=== PATIENT | male | born 1955 | race Asian ===

== ENCOUNTER 2019-08-30 12:32 | Inpatient (IN) | payer MEDICAID ==
[~2019-08-30] VITALS: Ht 162.6 cm; Wt 62.0 kg
[2019-08-30 12:58] LABS: Basophils # (auto) 0.1 uL; Lymphocytes # (auto) 2.6 uL; White Blood Cell 9.3 10^3/uL (4.4-10.8)
[2019-08-30 13:00] LABS: Basophils % (auto) 0.8 % (0.0-2.0); Eosinophils % (auto) 10.4 % (0.0-7.0); Hematocrit 36.6 % (41.0-53.0); Hemoglobin 11.9 g/dL (13.5-17.5); Lymphocytes % (auto) 28.1 % (10.0-50.0); Mean Corpuscular Hemoglobin 25.7 pg (28.0-32.0); Mean Corpuscular Hgb Conc. 32.5 g/dL (32.0-36.0); Monocytes % (auto) 11.3 % (0.0-12.0); Neutrophils # (auto) 4.6 uL; Neutrophils % (auto) 49.4 % (37.0-80.0); Nucleated Red Blood Cells % 0.1 %; Platelet Count (auto) 248 10^3/uL (140-450); Red Blood Cells 4.63 10^6/uL (4.5-5.90)
[2019-08-30 13:20] LABS: Albumin 3.3 g/dL (3.4-5.0); Anion Gap 5 (5-15); Blood Urea Nitrogen 16 mg/dL (7-18); Calcium 8.7 mg/dL (8.5-10.1); Carbon Dioxide 26 mmol/L (21-32); Chloride 109 mmol/L (98-107); Glucose 139 mg/dL (74-106); Potassium 3.5 mmol/L (3.5-5.1); Sodium 140 mmol/L (136-145)
[2019-08-30 13:26] LABS: Alanine Aminotransferase 42 U/L (16-61); Alkaline Phosphatase 92 U/L (45-117); Aspartate Aminotransferase 22 U/L (15-37); BUN/Creatinine Ratio 18.8; Bilirubin, Total 0.3 mg/dL (0.2-1.0); GFR African American 117 mL/min; GFR Non-African American 97 mL/min
[2019-08-30] MEDS ORDERED: cloNIDine HCL 0.1 MG TAB PO PRN (21:00)
[2019-08-30] MEDS ORDERED: ACETAMINOPHEN 325 MG TAB PO PRN (21:00)
[2019-08-30] MEDS ORDERED: TEMAZEPAM 15 MG CAP PO PRN (21:00)
[2019-08-30] MEDS ORDERED: ONDANSETRON HCL 4 MG/2 ML VIAL IV PRN (21:00)
[2019-08-30] MEDS ORDERED: MORPHINE SULF INJ 2 MG/ML SYRINGE 1ML IV PRN (21:30)
[2019-08-30] MEDS ORDERED: NITROGLYCERIN 0.4 MG SL TAB SL PRN (21:30)
[2019-08-30] MEDS: ATORVASTATIN 20 MG TAB PO SCH (22:19)
[2019-08-30] MEDS: FAMOTIDINE 20 MG TAB PO SCH (22:19)
[2019-08-30 22:30] VITALS: BP 150/86
--- NOTE | 2019-08-30 23:30 | NUR ---
Received the pt from ER at 2330. Reviewed POC. Oriented the patient to room 217B. All questions and concerned were addressed. Family at bedside.
--- NOTE | 2019-08-31 02:13 | NUR ---
Patient resting with eyes closed. Call light within reach.
--- NOTE | 2019-08-31 04:03 | NUR ---
Patient resting with eyes closed. Call light is within reach.
--- NOTE | 2019-08-31 04:31 | NUR ---
MRSA swab sent to lab.
[2019-08-31 05:58] VITALS: BP 144/86
--- NOTE | 2019-08-31 06:50 | NUR ---
Report given to Dustin JAVED. POC reviewed.
[2019-08-31 07:42] LABS: BUN/Creatinine Ratio 16.5; Calcium 8.8 mg/dL (8.5-10.1); Potassium 4.1 mmol/L (3.5-5.1)
[2019-08-31 09:00] VITALS: BP 137/87
[2019-08-31] MEDS: FAMOTIDINE 20 MG TAB PO SCH ×2 (10:10→21:41)
[2019-08-31] MEDS: ASPirin 81 mg TAB PO SCH (10:10)
[2019-08-31 13:00] VITALS: BP 117/70
[2019-08-31 17:00] VITALS: BP 132/84
--- NOTE | 2019-08-31 20:31 | NUR ---
Opening Shift Note Assumed care of patient, awake and alert. No S/S of distress/SOB or pain. Instructed on POC and to call for assist PRN, will continue to monitor for changes Q2hr and PRN.
[2019-08-31] MEDS: ATORVASTATIN 20 MG TAB PO SCH (21:42)
[2019-08-31 22:00] VITALS: BP 137/81
[2019-09-01 05:00] VITALS: BP 134/83
[2019-09-01 05:28] LABS: Basophils # (auto) 0.1 uL; Basophils % (auto) 0.8 % (0.0-2.0); Hemoglobin 13.2 g/dL (13.5-17.5); Mean Corpuscular Hemoglobin 25.7 pg (28.0-32.0); Monocytes # (auto) 1.2 uL; Red Blood Cells 5.14 10^6/uL (4.5-5.90)
[2019-09-01 05:29] LABS: Eosinophils # (auto) 1.4 uL; Eosinophils % (auto) 12.4 % (0.0-7.0); Hematocrit 40.9 % (41.0-53.0); Lymphocytes # (auto) 2.7 uL; Lymphocytes % (auto) 23.4 % (10.0-50.0); Mean Corpuscular Hgb Conc. 32.2 g/dL (32.0-36.0); Mean Corpuscular Volume 79.6 fL (80.0-100.0); Monocytes % (auto) 10.2 % (0.0-12.0); Neutrophils % (auto) 53.2 % (37.0-80.0); Nucleated Red Blood Cells % 0.2 %; Platelet Count (auto) 232 10^3/uL (140-450); Red Cell Distribution Width 17.2 % (11.8-14.3); White Blood Cell 11.4 10^3/uL (4.4-10.8)
[2019-09-01 05:47] LABS: Albumin 3.3 g/dL (3.4-5.0); BUN/Creatinine Ratio 18.8; Calcium 8.8 mg/dL (8.5-10.1)
[2019-09-01 05:49] LABS: Bilirubin, Total 0.6 mg/dL (0.2-1.0); Total Protein 8.2 g/dL (6.4-8.2)
[2019-09-01 09:00] VITALS: BP 121/68
[2019-09-01] MEDS ORDERED: MIDAZOLAM HCL 1MG/1ML-2 ML VIAL IV ONE (09:45)
[2019-09-01] MEDS ORDERED: fentaNYL CITRATE 100 MCG/2 ML VL IV ONE (09:45)
[2019-09-01] MEDS: FAMOTIDINE 20 MG TAB PO SCH ×2 (10:40→22:08)
[2019-09-01] MEDS: ASPirin 81 mg TAB PO SCH (10:40)
--- NOTE | 2019-09-01 11:36 | NUR ---
DR. LEZAMA REQUESTED LAB RESULTS. HARD COPY PLACED IN CHART, AND ALSO FAXED TO HIS OFFICE.
[2019-09-01 13:00] VITALS: BP 111/75
--- NOTE | 2019-09-01 14:00 | NUR ---
Opening Shift Note: A&Ox4, resting in bed. Room air, pain level 0/10, and ambulates independently without assistive devices. Bed locked in lowest position, side rails up x2, and call light within reach. IV 22 g in left hand IID inserted on 08/30/19. Skin intact: patient is going to have left pleural cath removed 08/22/19 by radiology. POC discussed and questions answered. Primary language is [place] but understands romanian. Will continue to round prn.
[2019-09-01] MEDS ORDERED: LIDOCAINE 2%HCL (LOCAL ANESTH.) INJ 20ML MDV ONE (14:11)
--- NOTE | 2019-09-01 15:00 | NUR ---
Patient return from radiology for pleural cath removal.
[2019-09-01 17:28] VITALS: BP 117/70
--- NOTE | 2019-09-01 17:32 | NUR ---
PAGE TO DR. LEZAMA: Page sent in regards to possible discharge clarification.
[2019-09-01 22:00] VITALS: BP 127/78
[2019-09-01] MEDS: ATORVASTATIN 20 MG TAB PO SCH (22:08)
--- NOTE | 2019-09-02 01:26 | NUR ---
Converted to Afib per telemetry monitoring. Patient stated he felt like his heart was beating fast when walking to the bathroom but no pain. EKG completed: Afib; abnormal EKG 88 bpm. When ambulating the patient's HR got up to 150s.
--- NOTE | 2019-09-02 01:45 | NUR ---
Conversion back to NSR in the 80s. Still no chest pain. Will continue to monitor for rhythm changes.
[2019-09-02] MEDS: HYDROcodone-ACET 5/325MG TAB PO PRN ×2 (02:00→05:54)
[2019-09-02 05:00] VITALS: BP 117/76
--- NOTE | 2019-09-02 07:30 | NUR ---
Opening Shift Note Assumed care of patient, awake and alert. No S/S of distress/SOB or pain. Instructed on POC and to call for assist PRN, will continue to monitor for changes Q1hr and PRN. Bed in low and locked position, rails up x2, no-slip socks on.
[2019-09-02 09:04] VITALS: BP 127/85
--- NOTE | 2019-09-02 10:00 | NUR ---
DR LEZAMA AT BEDSIDE NOTIFIED OF AFIB EPISODE DURING THE NIGHT, NO NEW ORDERS, PATIENT UP FOR DISCHARGE, DR LEZAMA SPOKE TO DR VARMA VIA TELEPHONE AND STATED TO HAVE PATIENT FOLLOW UP OUTPATIENT IN ONE MONTH.
[2019-09-02 10:59] VITALS: BP 122/85
[2019-09-02] MEDS ORDERED: PNEUMOCOCCAL VACC POLYS 25 MCG/0.5 ML VIAL IM ONE (11:15)
[2019-09-02] MEDS ORDERED: INFLUENZA QUAD 2019-2020 0.5ml SYRG IM ONE (11:15)
--- NOTE | 2019-09-02 11:42 | NUR ---
DISCHARGE Discharge instructions given as ordered. Encourage to follow up with PMD as instructed. All questions and concerns addressed. Patient verbalized understanding. Medication reconciliation form completed and copy given to patient. Needed vaccines given. IV removed with catheter intact, pressure dressing applied. Telemetry unit returned to ICU. Patient taken to vehicle via wheelchair with all personal belongings, accompanied by staff and family member. No distress noted at time of departure.
== END 2019-09-02 11:42 | disposition home or self-care (01) | DRG 203 ==
LOC: ER 12:35 → TELE 12:36 → TELE-CENTR 22:32
PROVIDERS: ADMIT Nurse Practitioner; ATTEND Internal Medicine
DX: R07.89 Other chest pain (principal); J90 Pleural effusion, not elsewhere classified; E44.0 Moderate protein-calorie malnutrition; D64.9 Anemia, unspecified; E78.5 Hyperlipidemia, unspecified; I10 Essential (primary) hypertension; F17.210 Nicotine dependence, cigarettes, uncomplicated; Z20.1 Contact with and (suspected) exposure to tuberculosis; Z23 Encounter for immunization; Z68.23 Body mass index [BMI] 23.0-23.9, adult
CPT/HCPCS: 36415; 71046; 80048; 80053; 83880; 84484; 85025; 87081; 93005; 93306; G0378; J2250

== ENCOUNTER 2020-06-19 11:39 | Inpatient (IN) | payer MEDICAID ==
[~2020-06-19] VITALS: Ht 162.6 cm; Wt 66.5 kg
[2020-06-19] MEDS ORDERED: SODIUM CHLORIDE 0.9% 1,000 ML IV ONE (13:06)
[2020-06-19] MEDS ORDERED: METOCLOPRAMIDE HCL 5MG/ml INJ 2ml VIAL IV ONE (13:15)
[2020-06-19] MEDS ORDERED: ASPirin 81 mg TAB PO ONE ×2 (13:15→15:30)
[2020-06-19] MEDS ORDERED: KETOROLAC TROMETH 30 MG/ML 1ML VIAL IV ONE (13:15)
[2020-06-19 13:45] LABS: Basophils # (auto) 0 10 ^3/uL (0-0.2); Basophils % (auto) 0.5 % (0.0-2.0); Eosinophils # (auto) 0.3 10 ^3/uL (0-0.8); Eosinophils % (auto) 2.8 % (0.0-7.0); Hematocrit 42.9 % (41.0-53.0); Hemoglobin 13.9 g/dL (13.5-17.5); Lymphocytes # (auto) 3.2 10 ^3/uL (0.4-5.4); Lymphocytes % (auto) 30.1 % (10.0-50.0); Mean Corpuscular Hemoglobin 28.5 pg (28.0-32.0); Mean Corpuscular Hgb Conc. 32.4 g/dL (32.0-36.0); Monocytes # (auto) 0.9 10 ^3/uL (0-1.3); Monocytes % (auto) 8.1 % (0.0-12.0); Neutrophils # (auto) 6.2 10 ^3/uL (1.6-8.6); Neutrophils % (auto) 58.5 % (37.0-80.0); Nucleated Red Blood Cells % 0.1 %; Platelet Count (auto) 241 10^3/uL (140-450); Red Blood Cells 4.87 10^6/uL (4.5-5.90); Red Cell Distribution Width 12.3 % (11.8-14.3); White Blood Cell 10.5 10^3/uL (4.4-10.8)
[2020-06-19 14:03] LABS: Albumin 3.9 g/dL (3.4-5.0); Calcium 8.3 mg/dL (8.5-10.1); Magnesium 2.5 mg/dL (1.6-2.6); Potassium 3.5 mmol/L (3.5-5.1)
[2020-06-19 14:09] LABS: BUN/Creatinine Ratio 19.1; Bilirubin, Total 0.4 mg/dL (0.2-1.0); Total Protein 7.4 g/dL (6.4-8.2)
[2020-06-19] MEDS ORDERED: METOPROLOL TARTRATE 1MG/1ML-5ML VIAL IV ONE (15:30)
[2020-06-19] MEDS ORDERED: MORPHINE SULF INJ 2 MG/ML SYRINGE 1ML IV PRN ×2 (16:00)
[2020-06-19] MEDS ORDERED: ONDANSETRON HCL 4 MG/2 ML VIAL IV PRN (16:00)
[2020-06-19] MEDS ORDERED: NITROGLYCERIN 0.4 MG SL TAB SL PRN (16:00)
[2020-06-19] MEDS ORDERED: hydrALAZINE HCL 20 MG/ML VL IV PRN (17:45)
[2020-06-19 19:10] VITALS: BP 169/92
[2020-06-19] MEDS: METOPROLOL TARTRATE 50 MG TAB PO SCH ×2 (19:30→21:37)
[2020-06-19 20:00] VITALS: BP 128/76
[2020-06-19] MEDS: ENOXAPARIN SOD 40 MG/0.4 ML SYRINGE SC SCH (21:37)
[2020-06-19 21:48] VITALS: BP 128/76
[2020-06-19] MEDS ORDERED: ATORVASTATIN 20 MG TAB PO SCH (22:00)
[2020-06-20 05:00] VITALS: BP 123/81
[2020-06-20 06:55] LABS: Urine Amorphous Crystal FEW /hpf (None Seen); Urine Bacteria NONE SEEN /hpf (None Seen); Urine Blood Negative /uL (Negative); Urine Mucus FEW (None Seen); Urine Specific Gravity 1.017 (1.001-1.035); Urine WBC 1 /hpf (0 - 3)
[2020-06-20] MEDS ORDERED: ADENOSINE 56 MG in GIVE UN-DILUTED 0 ML IV STA (08:15)
[2020-06-20 09:00] VITALS: BP 138/87
[2020-06-20] MEDS: ENOXAPARIN SOD 40 MG/0.4 ML SYRINGE SC SCH (09:53)
[2020-06-20] MEDS: METOPROLOL TARTRATE 50 MG TAB PO SCH (09:53)
[2020-06-20] MEDS ORDERED: ASPirin-EC 81 mg tab PO SCH (10:00)
[2020-06-20 13:00] VITALS: BP 142/75
[2020-06-20 17:10] VITALS: BP 128/76
== END 2020-06-20 18:00 | disposition home or self-care (01) | DRG 203 ==
LOC: ER 11:39 → TELE-WESTW 11:40
PROVIDERS: ADMIT Internal Medicine; ATTEND Internal Medicine
DX: M94.0 Chondrocostal junction syndrome [Tietze] (principal); I25.110 Atherosclerotic heart disease of native coronary artery with unstable angina pectoris; R79.89 Other specified abnormal findings of blood chemistry; I10 Essential (primary) hypertension; F17.210 Nicotine dependence, cigarettes, uncomplicated; E78.5 Hyperlipidemia, unspecified; I25.2 Old myocardial infarction; Z71.6 Tobacco abuse counseling; Z79.899 Other long term (current) drug therapy
CPT/HCPCS: 36415; 71045; 78452; 80053; 81001; 83735; 84443; 84484; 85025; 85379; 93005; 93017; 93306; 96361; 96374; G0378; J0153; J1885